=== PATIENT | female | born 1985 | race African-American/Black ===

== ENCOUNTER 2017-03-02 05:09 | Emergency (ER) | payer BC, OTHER ==
[~2017-03-02] VITALS: Ht 172.7 cm; Wt 108.9 kg
--- NOTE | 2017-03-02 05:23 | PHYS DOC ---
Past Medical History Past Medical History: No Pertinent History Past Surgical History: Tonsillectomy Alcohol Use: None Drug Use: None Adult General Chief Complaint Chief Complaint: ABDOMINAL PAIN HPI HPI Patient is a 31 year old F who presents with burning with urination for the past 3 days. Patient has been taking [id number] Azo to try and help with the burning with urination and unfortunately it's gotten worse. Patient describes some suprapubic abdominal pain. Patient denies any fevers. Patient denies any flank pain. Patient has no other complaints. Review of Systems Review of Systems GEN: Denies fevers, chills, sweats HEENT: Denies blurred vision, sore throat CV: Denies chest pain RESP: Denies shortness of air, cough GI: Suprapubic abdominal pain with burning with urination NEURO: Denies confusion, dizziness MSK: Denies weakness, joint pain/swelling Current Medications Current Medications Current Medications Medications (Trade) Dose Ordered Sig/Enzo Start Time Stop Time Status Last Admin Dose Admin Phenazopyridine HCl (Pyridium) 200 mg 1X ONCE 03/02/17 06:45 03/02/17 06:46 DC 03/02/17 07:37 200 MG Trimethoprim/ Sulfamethoxazole (Bactrim Ds) 1 tab 1X ONCE 03/02/17 06:45 03/02/17 06:46 DC 03/02/17 07:37 1 TAB Allergies Allergies Allergies Coded Allergies Type Severity Reaction Last Updated Verified No Known Drug Allergies 09/14/13 No Physical Exam Physical Exam GEN.: No apparent distress. Alert and oriented. HEENT: Head is normocephalic, atraumatic NECK: Supple. LUNGS: CTAB. HEART: RRR, S1, S2 present. Peripheral pulses intact ABDOMEN: Soft, mild suprapubic abdominal pain, no CVA tenderness. Positive bowel sounds. EXTREMITIES: Without any cyanosis. NEUROLOGIC: Normal speech, normal tone PSYCHIATRIC: Normal affect, normal mood. SKIN: No ulcerations Pelvic examination: Patient with a normal sternal examination, bimanual examination reveals strings from IUD that is in place and easily palpable. No CMT, no adnexal masses or tenderness identified. Patient with a small amount of yellowish discharge. Speculum examination performed without issue, normal- appearing cervix identified, specimens taken without issue. Current Patient Data Vital Signs Vital Signs Date Time Temp Pulse Resp B/P (MAP) Pulse Ox O2 Delivery O2 Flow Rate FiO2 03/02/17 08:44 76 20 122/75 (91) 99 Room Air 03/02/17 05:33 98.3 98.3 Lab Values Laboratory Tests Test 03/02/17 05:20 03/02/17 05:32 Urine Collection Type Unknown Urine Color [place] Urine Clarity Clear Urine pH 7.0 Urine Specific [place] Urine Protein mg/dL (NEG-TRACE) Urine Glucose (UA) Negative mg/dL (NEG) Urine Ketones (Stick) Negative mg/dL (NEG) Urine Blood (NEG) Urine Nitrite (NEG) Urine Bilirubin Negative (NEG) Urine Urobilinogen Dipstick 1.0 mg/dL (0.2 mg/dL) Urine Leukocyte Esterase (NEG) Urine RBC 20-40 /HPF (0-2) Urine WBC 5-10 /HPF (0-4) Urine Squamous Epithelial Cells Mod /LPF Urine Bacteria 0 /HPF (0-FEW) Urine Mucus Marked /LPF POC Urine HCG, Qualitative Hcg negative (Negative) Microbiology 03/02/17 Wet Prep - Final, Complete EKG EKG Not indicated.[] Radiology/Procedures Radiology/Procedures Not indicated.[] Course & Med Decision Making Course & Med Decision Making Pertinent Labs and Imaging studies reviewed. (See chart for details) 0600: Pt signed out to Dr. Tsai who will f/u in UA and final dispo I assumed care of patient as stated, on reevaluation, patient is resting comfortably, vital signs remained within normal limits. She describes dysuria, with a feeling of incomplete void, denies any fevers, any nausea or vomiting, any back or flank pain. Patient's urinary results are limited, she has been using Keflex for the past several days and also Azo, did discuss with patient that this may be responsible for her aseptic sample, with inability to assess for nitrates. Patient also states that she been experiencing a small amount of vaginal spotting over the past several days, after discussion at bedside she states she would like to proceed with a pelvic examination and she previously has a bacterial vaginitis infection. She denies any concerns for STI exposures that she was last sexually active about 2 months ago. We'll obtain wet prep, GC and chlamydia, in the meantime, will change patient to Bactrim, and give pyridium. Pelvic examination performed, was unremarkable on examination. Wet prep did not reveal any evidence of concerning findings, few white blood cells were noted. I did discuss again with patient her GC and continue cultures, she again reiterates that she has no concerns for STI's, last had a full pelvic examination 2 months ago, has not been sexually active since that time. She'll be contacted if culture results require follow-up. Patient tolerated oral medications in the ED without issue, is resting comfortably, on reevaluation states she is ready to be discharged home. We did discuss concerning symptoms that prompt return to the ED, importance of follow-up, and importance of using antibiotic as directed. Patient discharged with prescription for Bactrim, Pyridium, naproxen, to follow-up as discussed, and to return to the ED for new or concerning symptoms as stated. [] Dragon Disclaimer Dragon Disclaimer This electronic medical record was generated, in whole or in part, using a voice recognition dictation system. Departure Impression: Primary Impression: Urinary tract infection Disposition: HOME, SELF-CARE Condition: IMPROVED Referrals: NO PCP (PCP) Scripts Naproxen (NAPROXEN) 250 Mg Tablet 250 MG PO PRN BID Y for PAIN, #10 Prov: REBECCA TSAI M DO 03/02/17 Phenazopyridine Hcl (PYRIDIUM) 200 Mg Tablet 200 MG PO PRN TID Y for BLADDER SPASM, #9 TAB Prov: AVERY TSAIIN M DO 03/02/17 Sulfamethoxazole/Trimethoprim (BACTRIM DS TABLET) 1 Each Tablet 1 EACH PO BID, #5 TAB Prov: AVERY TSAIIN M DO 03/02/17 Departure Departure Impression: Primary Impression: Urinary tract infection Disposition: HOME, SELF-CARE Condition: IMPROVED Referrals: NO PCP (PCP) Scripts Naproxen (NAPROXEN) 250 Mg Tablet 250 MG PO PRN BID Y for PAIN, #10 Prov: EULALIOAVERYREBECCA M DO 03/02/17 Phenazopyridine Hcl (PYRIDIUM) 200 Mg Tablet 200 MG PO PRN TID Y for BLADDER SPASM, #9 TAB Prov: EULALIOREBECCA M DO 03/02/17 Sulfamethoxazole/Trimethoprim (BACTRIM DS TABLET) 1 Each Tablet 1 EACH PO BID, #5 TAB Prov: REBECCA TSAI M DO 03/02/17 FCO ROE DO Mar 02, 2017 05:22 REBECCA TSAI DO Mar 02, 2017 06:51
[2017-03-02 06:03] LABS: BILIRUBIN,URINE NEGATIVE (NEG); GLUCOSE,URINE NEGATIVE (NEG)
[2017-03-02 06:21] LABS: BACTERIA,URINE 0 /HPF (0-FEW); RBC,URINE 20-40 /HPF (0-2); SQUAMOUS EPITHELIAL CELL,UR MOD /LPF
[2017-03-02] MEDS ORDERED: PHENAZOPYRIDINE 200 MG TABLET. PO ONE (06:45)
[2017-03-02] MEDS ORDERED: SMZ/TMP 800/160MG TABLET. PO ONE (06:45)
[2017-03-02] MEDS ORDERED: PHEN-318 PO (08:31)
[2017-03-02] MEDS ORDERED: NAPR250T6 PO (08:31)
[2017-03-02] MEDS ORDERED: SULF1TAB24 PO (08:31)
[2017-03-02 08:44] VITALS: BP 122/75
== END 2017-03-02 08:45 | disposition home or self-care (01) ==
LOC: ER 05:09
DX: N39.0 Urinary tract infection, site not specified (principal)
CPT/HCPCS: 81001; 81025; 87086; 87491; 87591; 99284; Q0111

== ENCOUNTER 2017-08-31 14:01 | Emergency (ER) | payer BC ==
[2017-08-31 14:20] LABS: URINE HCG POC HCG NEGATIVE (Negative)
[2017-08-31 14:21] LABS: BILIRUBIN,URINE NEGATIVE (NEG); CLARITY,URINE CLEAR; COLOR,URINE YELLOW; GLUCOSE,URINE NEGATIVE (NEG); NITRITE,URINE NEGATIVE (NEG); PROTEIN,URINE NEGATIVE (NEG-TRACE)
[2017-08-31 14:30] LABS: BACTERIA,URINE FEW /HPF (0-FEW); RBC,URINE 0 /HPF (0-2); SQUAMOUS EPITHELIAL CELL,UR FEW /LPF; WBC,URINE RARE /HPF (0-4)
[2017-08-31] MEDS: cefTRIAXone IM 250 MG VIAL IM (16:32)
[2017-09-02 14:23] LABS: CHLAMYDIA PROBE Negative (Negative); GC PROBE Negative (Negative)
== END 2017-08-31 16:35 | disposition home or self-care (01) ==
LOC: ER 14:01
DX: N76.0 Acute vaginitis (principal); B96.89 Other specified bacterial agents as the cause of diseases classified elsewhere; N73.0 Acute parametritis and pelvic cellulitis; E66.9 Obesity, unspecified; Z68.37 Body mass index [BMI] 37.0-37.9, adult
CPT/HCPCS: 81001; 81025; 87491; 87591; 96372; 99284; J0696; Q0111

== ENCOUNTER 2021-03-08 15:58 | Emergency (ER) | payer BC ==
[~2021-03-08] VITALS: Ht 172.7 cm; Wt 119.0 kg
[~2021-03-08 15:58] MED LIST: DOXY100T PO; METR-111 PO; NAPR-699 PO; PHEN-318 PO; SULF1TAB24 PO
[2021-03-08 16:54] LABS: BILIRUBIN,URINE NEGATIVE (NEG); CLARITY,URINE CLEAR; COLOR,URINE YELLOW; NITRITE,URINE NEGATIVE (NEG); PROTEIN,URINE NEGATIVE (NEG-TRACE); UROBILINOGEN,URINE 0.2 mg/dL (0.2 mg/dL)
[2021-03-08 17:03] LABS: BACTERIA,URINE 0 /HPF (0-FEW); RBC,URINE 0 /HPF (0-2)
[2021-03-08] MEDS ORDERED: HYDROcodone/APAP 5/325MG 1 TAB TABLET PO ONE (17:45)
--- NOTE | 2021-03-08 18:18 | PHYS DOC ---
Past Medical History Past Medical History: No Pertinent History Additional Past Medical Histor: high-risk Past Surgical History: , Tonsillectomy, Other Additional Past Surgical Histo: bilat breast reduction Smoking Status: Never Smoker Alcohol Use: None Drug Use: None General Adult EDM: Chief Complaint: PELVIC PAIN HPI: HPI: Patient is a 35 year old female who presents with walking through her house when she tripped over something falling towards her side and twisting her right knee. She has medial knee pain with movement. She states she is also been having low pelvic pain with urinary frequency she would like to be checked for a pelvic infection or a urinary tract infection. She states that has been going on for the last 4 days. She has a history of tonsillectomy. She rates her pain at a aching nonradiating 8 out of 10. Review of Systems: Review of Systems: Constitutional: Denies fever or chills. [] Eyes: Denies change in visual acuity. [] HENT: Denies nasal congestion or sore throat. [] Respiratory: Denies cough or shortness of breath. [] Cardiovascular: Denies chest pain or edema. [] GI: + Pelvic abdominal pain, denies nausea, vomiting, bloody stools or diarrhea. [] : Denies dysuria. [] Musculoskeletal: Denies back pain or + right knee joint pain. [] Integument: Denies rash. [] Neurologic: Denies headache, focal weakness or sensory changes. [] Endocrine: Denies polyuria or polydipsia. [] Lymphatic: Denies swollen glands. [] Psychiatric: Denies depression or anxiety. [] Heart Score: C/O Chest Pain: No Current Medications: Current Medications Medications (Trade) Dose Ordered Sig/Enzo Start Time Stop Time Status Last Admin Dose Admin Acetaminophen/ Hydrocodone Bitart (Lortab 5/325) 1 tab 1X ONCE 03/08/21 17:45 03/08/21 17:46 DC Allergies: Allergies: Allergies Coded Allergies Type Severity Reaction Last Updated Verified No Known Drug Allergies 09/14/13 No Physical Exam: PE: Constitutional: Well developed, well nourished, no acute distress, non-toxic appearance. [] HENT: Normocephalic, atraumatic, bilateral external ears normal, oropharynx moist, no oral exudates, nose normal. [] Eyes: PERRLA, EOMI, conjunctiva normal, no discharge. [] Neck: Normal range of motion, no tenderness, supple, no stridor. [] Cardiovascular:Heart rate regular rhythm, no murmur [] Lungs & Thorax: Bilateral breath sounds clear to auscultation [] Abdomen: Bowel sounds normal, soft, no tenderness, no masses, no pulsatile masses. [] Skin: Warm, dry, no erythema, no rash. [] Back: No tenderness, no CVA tenderness. [] Extremities: Right medial knee tenderness, no cyanosis, no clubbing, ROM intact, 1+ edema. [] Neurologic: Alert and oriented X 3, normal motor function, normal sensory function, no focal deficits noted. [] Psychologic: Affect normal, judgement normal, mood normal. [] Current Patient Data: Labs: Laboratory Tests Test 03/08/21 16:17 Urine Collection Type Unknown Urine Color Yellow Urine Clarity Clear Urine pH 6.0 (<5.0-8.0) Urine Specific [place] 1.020 (1.000-1.030) Urine Protein Negative mg/dL (NEG-TRACE) Urine Glucose (UA) Negative mg/dL (NEG) Urine Ketones (Stick) Negative mg/dL (NEG) Urine Blood Trace (NEG) Urine Nitrite Negative (NEG) Urine Bilirubin Negative (NEG) Urine Urobilinogen Dipstick 0.2 mg/dL (0.2 mg/dL) Urine Leukocyte Esterase Small (NEG) Urine RBC 0 /HPF (0-2) Urine WBC 1-4 /HPF (0-4) Urine Squamous Epithelial Cells Mod /LPF Urine Bacteria 0 /HPF (0-FEW) Urine Mucus Mod /LPF POC Urine HCG, Qualitative Hcg negative (Negative) Microbiology 03/08/21 Wet Prep - Final, Complete Vital Signs: Vital Signs Date Time Temp Pulse Resp B/P (MAP) Pulse Ox O2 Delivery O2 Flow Rate FiO2 03/08/21 16:27 98.4 77 20 148/73 (98) 100 Room Air 98.4 EKG: EKG: [] Radiology/Procedures: Radiology/Procedures: [] Impression: [facility] [address] [place] [address] IMAGING REPORT Signed PATIENT: NAOMY HA EACCOUNT: [id number] : 1985 LOCATION: ER AGE: 35 SEX: F EXAM STATUS: REG ER ORD. PHYSICIAN: HARSHIL NUNEZ APRN REASON: PAIN AFTER FALL PROCEDURE: KNEE RIGHT 4V EXAMINATION: Right knee radiograph. VIEWS: 4 views COMPARISON: None INDICATION:35 years, Female, pain after fall. FINDINGS: No acute fracture, dislocation or subluxation. Joint spaces are preserved. No joint effusion. Soft tissues are unremarkable. Normal bone mineralization. IMPRESSION: No acute osseous process. Electronically signed by: Kevan Cadena DO (03/08/2021 6:40 PM) [facility] DICTATED and SIGNED BY: KEVAN CADENA DO DATE: 03/08/[id number] 0 [facility] [address] [place] [address] IMAGING REPORT Signed PATIENT: NAOMY HA EACCOUNT: [id number] : 1985 LOCATION: ER AGE: 35 SEX: F EXAM STATUS: REG ER ORD. PHYSICIAN: HARSHIL NUNEZ APRN REASON: pelvic pain PROCEDURE: PELVIS W/TV EXAM: ULTRASOUND PELVIS INDICATION: pelvic pain . Last menstrual period was 02/10/2021. HCG negative. COMPARISON: None available. TECHNIQUE: Transabdominal and transvaginal sonography was performed. FINDINGS: The uterus measures 9.8 x 6.3 x 6.2 cm. The endometrium measures 10 mm. There is no focal myometrial abnormality. IUD in place. The right ovary measures 4.7 x 3.8 x 2.9 cm. Normal vascularity. The left ovary was not visualized. There is no free fluid. IMPRESSION: 1. Physiologic appearance of the uterus and right ovary. 2. Left ovary was not visualized. 3. IUD in place. Electronically signed by: Joanne Munoz MD (03/08/2021 8:08 PM) [facility] DICTATED and SIGNED BY: JOANNE MUNOZ MD DATE: 03/08/21 [id number] 0 Course & Med Decision Making: Course & Med Decision Making Pertinent Labs and Imaging studies reviewed. (See chart for details) See HPI. Alert and oriented x4. Ambulatory with a steady gait but she is limping on the right knee. No joint laxity or deformity. 1+ swelling. Slight tenderness to the right medial knee. Pedal pulse strong and present. Skin pink warm and dry. No bruising. No abrasion or laceration. Abdomen is soft and nontender. Pelvic Exam: Road Roller Operator present Abdomen: Nontender External Genitalia: Normal Skin Speculum: Normal vaginal mucosa, scant white cervical discharge Bimanual: No adnexal masses or tenderness, No CMT Knee x-ray showed no acute findings. Left ovary on ultrasound was not visualized but she does not have any pain on the left lower side of the abdomen. She will be placed in a knee immobilizer. Will refer her to orthopedic. I will start her on antibiotic for urinary symptoms. [] Dragon Disclaimer: Dragon Disclaimer: This electronic medical record was generated, in whole or in part, using a voice recognition dictation system. Departure Departure Impression: Primary Impression: Urinary tract infection Qualified Codes: N39.0 - Urinary tract infection, site not specified; R31.9 - Hematuria, unspecified Additional Impressions: Knee pain, right Qualified Codes: M25.561 - Pain in right knee Bacterial vaginosis Disposition: HOME / SELF CARE / HOMELESS Condition: STABLE Referrals: NON,STAFF (PCP) JUAN MANUEL SIMON MD Patient Instructions: Bacterial Vaginosis, Knee Sprain, Urinary Tract Infection Additional Instructions: Follow-up with primary care provider if needed. Take medication as prescribed and with food. Take ibuprofen for your pain. Use ice to your knee. I have referred you to an orthopedic. Scripts Metronidazole (METRONIDAZOLE) 500 Mg Tablet 1 TAB PO BID for 7 Days, #14 TAB 0 Refills Prov: HARSHIL NUNEZ MACHINING AND [employer]SEMBLY SUPERVISOR 03/08/21 Cephalexin (KEFLEX) 500 Mg Capsule 1 CAP PO TID, #30 CAP Prov: HARSHIL NUNEZ MACHINING AND [employer]SEMBLY SUPERVISOR 03/08/21 HARSHIL NUNEZ APRN Mar 08, 2021 18:18
--- NOTE | 2021-03-08 18:43 | RAD ---
EXAMINATION: Right knee radiograph. VIEWS: 4 views COMPARISON: None INDICATION:35 years, Female, pain after fall. FINDINGS: No acute fracture, dislocation or subluxation. Joint spaces are preserved. No joint effusion. Soft ti ssues are unremarkable. Normal bone mineralization. IMPRESSION: No acute osseous process. Electronically signed by: Lior Cadena DO (03/08/2021 6:40 PM) [facility]
[2021-03-08 19:32] LABS: BASO # 0.1 x10^3/uL (0.0-0.2); BASO % 1 % (0-3); EOS # 0.3 x10^3/uL (0.0-0.7); EOS % 3 % (0-3); HEMATOCRIT 36.4 % (36.0-47.0); HEMOGLOBIN 11.6 g/dL (12.0-15.5); LYMPH # 2.7 x10^3/uL (1.0-4.8); LYMPH % 33 % (24-48); MEAN CORPUSCULAR HEMOGLOBIN 24 pg (25-35); MEAN CORPUSCULAR HGB CONC 32 g/dL (31-37); MEAN CORPUSCULAR VOLUME 76 fL (79-100); MONO # 0.6 x10^3/uL (0.0-1.1); MONO % 8 % (0-9); NEUT # 4.6 x10^3/uL (1.8-7.7); NEUT % 56 % (31-73); PLATELET COUNT 252 x10^3/uL (140-400); RED BLOOD COUNT 4.81 x10^6/uL (3.50-5.40); RED CELL DISTRIBUTION WIDTH 16.5 % (11.5-14.5); WHITE BLOOD COUNT 8.2 x10^3/uL (4.0-11.0)
[2021-03-08 19:45] LABS: CALCIUM 8.3 mg/dL (8.5-10.1); CREATININE 0.7 mg/dL (0.6-1.0); GFR 115.2; POTASSIUM 3.6 mmol/L (3.5-5.1)
[2021-03-08 19:51] LABS: ALBUMIN 3.2 g/dL (3.4-5.0); ALBUMIN/GLOBULIN RATIO 0.7 (1.0-1.7); TOTAL BILIRUBIN 0.2 mg/dL (0.2-1.0); TOTAL PROTEIN 7.5 g/dL (6.4-8.2)
--- NOTE | 2021-03-08 20:10 | RAD ---
EXAM: ULTRASOUND PELVIS INDICATION: pelvic pain . Last menstrual period was 02/10/2021. HCG negative. COMPARISON: None available. TECHNIQUE: Transabdominal and transvaginal sonography was performed. FINDINGS: The uterus measures 9.8 x 6.3 x 6.2 cm. The endometrium measures 10 mm. There is no focal myometrial abnormality. IUD in place. The right ovary measures 4.7 x 3.8 x 2.9 cm. Normal vascularity. The left ovary was not visualized. There is no free fluid. IMPRESSION: 1. Physiologic appearance of the uterus and right ovary. 2. Left ovary was not visualized. 3. IUD in place. Electronically signed by: Jama Munoz MD (03/08/2021 8:08 PM) [facility]
[2021-03-08] MEDS ORDERED: CEPH500C PO (20:19)
[2021-03-08] MEDS ORDERED: METR-34 PO (20:19)
[2021-03-08 20:27] VITALS: BP 141/63
[2021-03-08] MEDS ORDERED: cefTRIAXone IM 500 MG VIAL. IM ONE (20:30)
[2021-03-08] MEDS ORDERED: cefTRIAXone IV Push 1 GM VIAL. IVP ONE (20:30)
[2021-03-09 18:29] LABS: GC PROBE Negative (Negative)
== END 2021-03-08 20:57 | disposition home or self-care (01) ==
LOC: ER 15:58
DX: N39.0 Urinary tract infection, site not specified (principal); R31.9 Hematuria, unspecified; M25.561 Pain in right knee; N76.0 Acute vaginitis; B96.89 Other specified bacterial agents as the cause of diseases classified elsewhere
CPT/HCPCS: 36415; 73564; 76830; 76856; 80053; 81001; 81025; 85025; 87086; 87491; 87591; 96372; 99285; J0696; Q0111